=== PATIENT | female | born 1985 | race Caucasian/White ===

== ENCOUNTER 2018-09-18 20:52 | Emergency (ER) | payer MEDICAID ==
[~2018-09-18] VITALS: Ht 162.6 cm; Wt 63.0 kg
[2018-09-18 20:53] VITALS: BP 128/77
== END 2018-09-19 02:42 | disposition left against medical advice (07) ==
LOC: ER 20:57
DX: Z53.21 Procedure and treatment not carried out due to patient leaving prior to being seen by health care provider (principal)